=== PATIENT | female | born 1950 | race Caucasian/White ===

== ENCOUNTER 2024-11-15 12:53 | Day surgery (SDC) | payer MEDICARE, SELFPAY ==
[2024-11-15 13:39] VITALS: BMI 21.1
[2024-11-15 13:52] VITALS: BP 157/77; PULSE 72; RESP 17; TEMP 36.7; O2SAT 100
[2024-11-15] MEDS: LACTATED RINGERS 1000ML 1,000 ML 50 ML IV (14:07)
--- NOTE | 2024-11-15 15:44 | P.HP_ITS ---
History of Present Illness *Admission Date: 11/15/24 *Reason for visit:: Iron deficiency anemia *History of present illness: Mrs. Tabares is a 74-year-old female with moderate to marked iron deficiency anemia who is here for diagnostic EGD. The examination is deemed medically necessary for diagnostic EGD. The patient has been seen, interviewed and examined prior to the procedure by both myself and the anesthesia provider. [facility] Disclaimer: The information contained in this section may have been updated after the patient was seen, as this information can be updated by other users. Medical History (Updated 11/15/24 @ 15:44 by Kofi Lam II, MD) Hypothyroid History of anemia Anxiety Osteoporosis Left wrist fracture Surgical History (Updated 11/15/24 @ 14:00 by Madyson Barth RN) History of hysterectomy History of left hip hemiarthroplasty H/O rectal sphincterotomy Family History (Updated 11/15/24 @ 14:00 by Madyson Barth RN) Other Family history of myocardial infarction Family history of stroke Social History (Updated 11/15/24 @ 14:00 by Madyson Barth RN) Smoking Status: Never smoker alcohol intake: never current occupational status: employed and retired Travel in the last 8 weeks: None caffeine: Yes Have you lived/traveled outside [place] in past 30 days?: No Contact w/someone who lives/traveled outside US past 30 days?: No Exposure to someone with infectious disease in past 14 days?: No Do you have a fever (greater than 100.4 F or 38 C)?: No Have you tested positive for COVID-19: No Exposed to someone with COVID-19 in past 14 days?: No Do you have a sore throat?: No Do you have a cough?: No Do you have any weakness?: No Are you experiencing any nausea/vomitting?: No Do you have any diarrhea?: No Are you experiencing any unusual bleeding?: No Do you have any muscle aches/pain?: No Do you have any abdominal pain?: No Are you experiencing loss of taste or smell?: No Review of Systems Review of Systems Review of systems (narrative): Negative *Cardiovascular Comments: Negative *Gastrointestinal Comments: Negative *Genitourinary Comments: Negative *Musculoskeletal Comments: Negative *Neurologic Comments: Negative Meds Home Medications and Allergies Home Medications ?Medication ?Instructions ?Recorded ?Confirmed ?Type calcium carbonate 500 mg PO DAILY 11/15/24 11/15/24 History clonazepam 1 mg tablet (Klonopin) 1 mg PO DAILY PRN Anxiety 11/15/24 11/15/24 History ferrous sulfate 325 mg (65 mg 325 mg PO DAILY 11/15/24 11/15/24 History iron) tablet levothyroxine 75 mcg tablet 75 mcg PO DAILY 11/15/24 11/15/24 History pantoprazole 40 mg tablet,delayed 40 mg PO DAILY 11/15/24 11/15/24 History release sertraline 100 mg tablet (Zoloft) 100 mg PO DAILY 11/15/24 11/15/24 History vit A 7,160 unit-vit C 113 mg-vit 1 tab PO DAILY 11/15/24 11/15/24 History E 100 wozn-nmer-wnauet tablet vitamin E 30 unit capsule 1 unit PO DAILY 11/15/24 11/15/24 History New Prescriptions to Start Prescriptions: Allergies Allergy/AdvReac Type Severity Reaction Status Date / Time No Known Allergies Allergy Verified 11/15/24 13:41 Exam Data for Last 24 hours Vital signs and Labs for Last 24 Hours: Temp Pulse Resp BP Pulse Ox O2 Del Method 98.0 F 72 17 157/77 H 100 Room Air 11/15/24 13:52 11/15/24 13:52 11/15/24 13:52 11/15/24 13:52 11/15/24 13:52 11/15/24 13:52 I & O for Last 24 hours: Intake & Output 11/12/24 11/13/24 11/14/24 11/15/24 23:59 23:59 23:59 23:59 Weight 108 lb *Routine HEENT Exam Head: Present normocephalic Eye: Present EOMI and PERRL ENT: Present mucous membranes moist *Routine Neck Exam Neck: Present supple *Routine Respiratory Exam Respiratory: Present CTA bilaterally *Routine Cardiovascular Exam Cardiovascular: Present RRR *Routine Abdominal Exam Abdominal: Present soft and normoactive bowel sounds; Absent tenderness *Routine Rectal Exam Rectal:: deferred *Routine Genitalia Exam Genitalia:: deferred *Routine Extremities Exam Extremities: Absent cyanosis, clubbing or edema *Routine Skin Exam Skin: Present warm; Absent rash *Routine Neurological Exam Neurological: Present alert and oriented X3 Assessment and Plan *Assessment and plan (1) Iron deficiency anemia: Status: Acute Category: Medical Code(s): D50.9 - Iron deficiency anemia, unspecified Plan A/P: 1. Iron deficiency anemia is the preprocedural diagnosis. The patient will be anesthetized/sedated using MAC sedation. The patient has been seen and examined. Cardiac and lung assessment prior to the examination is stable. Proceed with planned diagnostic EGD.
--- NOTE | 2024-11-15 15:49 | HMH.PROCNOTE ---
[facility] Procedure Note Date: 11/15/24 Time: 15:49 Procedure Note:: Upper Endoscopy Procedure Report: Esophagogastroduodenoscopy with cold biopsies Endoscopost: Kofi Lam II, MD Referring Physician: Andrew Booker MD Date of Procedure: November 15, 2024 Equipment: Olympus GIF 190 standard upper endoscope Sedation: MAC sedation Indications: Mrs. Tabares is a 74-year-old female who is here for diagnostic upper endoscopy secondary to marked iron deficiency anemia. Her hemoglobin and hematocrit were recently low and she reports a hemoglobin as low as 6. Her iron saturation she reports at 2%. I do not have her labs or her old records presently. The patient did have a colonoscopy with [facility] 3 years ago that was essentially normal. She reports no abdominal pain, melena, hematochezia or bright red blood per rectum. She is not on any anticoagulation and reports no NSAIDs. She reports no dysphagia or weight loss. She is on oral iron but has not had parenteral iron infusion or Hemoccult testing. Procedure: Prior to the procedure, a history and physical exam was performed, and patient's medications and allergies were reviewed. The risks, benefits and alternatives of the sedation and procedure were discussed with the patient. All questions were answered and informed consent was obtained. The patient was brought to the procedure room. Patient identification and proposed procedure were verified by the physician and the nurse. The patient was placed in a left lateral decubitus position and the scope was passed under direct vision. Throughout the procedure, the patient's blood pressure, pulse, and oxygen saturations were monitored continuously. The upper GI endoscopy was accomplished without difficulty. The patient tolerated the procedure well. Findings: The scope was passed directly into the upper esophagus and advanced to the third portion of the duodenum. The post bulbar duodenum and duodenal bulb were normal with normal mucosa and conniventes. There were no angiodysplasias or ulcerations within the duodenum. The scope was withdrawn through a wide anastomosis into the stomach and there is evidence of prior antrectomy. There was moderate bile reflux with moderate linear reactive gastropathy of the body and fundus of the stomach. There were no erosions, ulcerations or angiodysplasias of the stomach. Upon retroflexion there was no hiatal hernia. Biopsies were taken from the body of the stomach. The scope was then withdrawn into the esophagus. There was no evidence of reflux esophagitis or Villanueva's. The remainder of the esophageal mucosa was normal. Impression: 1. Prior antrectomy/distal gastrectomy with normal widely patent anastomosis 2. Bile reflux with moderate linear reactive gastropathy Plan: There was no etiology for her iron deficiency. I am going to have her do Hemoccult testing. I will inquire about use of [id number] NSAIDs or aspirin. If the patient is Hemoccult positive, I would recommend PillCam testing. I would also consider repeat colonoscopy even though it has been just 3 years. If she is Hemoccult negative, she is not absorbing iron well. I would recommend parenteral iron infusion at this time as well. I will discuss the findings with the patient and family. I would like to obtain her recent labs and old records.
[2024-11-15 15:58] VITALS: BP 140/69; PULSE 71; RESP 20; TEMP 36.3; O2SAT 98
--- NOTE | 2024-11-15 15:59 | P.PNANES_ITS ---
[facility] Disclaimer: The information contained in this section may have been updated after the patient was seen, as this information can be updated by other users. Medical History Hypothyroid History of anemia Anxiety Osteoporosis Left wrist fracture Surgical History History of hysterectomy History of left hip hemiarthroplasty H/O rectal sphincterotomy Family History Other Family history of myocardial infarction Family history of stroke Social History Smoking Status: Never smoker alcohol intake: never substance use type: unknown current occupational status: employed and retired Travel in the last 8 weeks: None caffeine: Yes [facility] Anesthesia Checklist Patient Identification Patient Identification: Arm Band and Verbal (Name & ) Structural Data Admitted From: Home Planned Operative Procedure/s: EGD Verified Documents: Surgical Consent and History and Physical NPO Status Verified Time NPO: 00:00 Additional verifications Anesthesia Reactions: No Previous Colonoscopy: Yes Airway Assessment Mallampati Score:: Class II Neurological Assessment Level of Consciousness: Awake, Alert and Appropriate Anesthesia Plan Anesthesia Risk discussed: Yes Anesthesia Plan: Verified ASA Class: II Anesthesia Type: MAC
[2024-11-15 16:08] VITALS: BP 151/77; PULSE 67; RESP 20; O2SAT 99
[2024-11-15 16:18] VITALS: BP 161/84; PULSE 71; RESP 17; O2SAT 99
[2024-11-15 16:31] LABS: Basophils % 0.4 % (0.1-2.0); Eosinophils # 0.6 Kmm3 (0.0-0.4); Eosinophils % 6.6 % (0.1-12.0); Hematocrit 38.9 % (37.0-47.0); Hemoglobin 11.9 g/dL (12.2-16.2); Lymphocytes # 1.7 K/mm3 (0.7-4.5); Lymphocytes % 20.8 % (10-50); Mean Corpuscular HGB Conc 30.6 g/dL (31.8-35.4); Mean Corpuscular Hemoglobin 24.4 pg (27.0-31.2); Mean Corpuscular Volume 79.9 fl (81-99); Mean Platelet Volume 8.9 fl (7.4-10.4); Monocytes # 0.5 K/mm3 (0.1-1.0); Monocytes % 5.8 % (1.7-9.3); Neutrophils # 5.5 K/mm3 (1.8-7.8); Neutrophils % 66.2 % (37.0-80.0); Nucleated Red Blood Cells # 0 10^3/uL; Nucleated Red Blood Cells % 0 %; Platelet Count 390 K/mm3 (142-424); Red Blood Count 4.87 M/mm3 (4.20-5.40); Red Cell Distribution Width 16.8 % (11.5-17.5); Red Cell Distribution Width-SD 49.7 fL; White Blood Count 8.3 K/mm3 (4.8-10.8)
[2024-11-15 17:20] LABS: Iron 35 ug/dL (37-170)
[2024-11-15 17:29] LABS: Total Iron Binding Capacity 370 ug/dL (265-497)
[2024-11-15 17:57] LABS: Ferritin 13.9 ng/ml (11.1-264)
== END 2024-11-15 16:26 | disposition home or self-care (01) ==
PROVIDERS: PCP Internal Medicine; Visit Provider Internal Medicine Gastroenterology
PROC: 0DJ08ZZ Inspection of Upper Intestinal Tract, Via Natural or Artificial Opening Endoscopic (ICD-10-PCS; CPT 43239; principal; 2024-11-15 14:30)
DX: D50.9 Iron deficiency anemia, unspecified (principal); K31.9 Disease of stomach and duodenum, unspecified
CPT/HCPCS: 43239; 36415; 82728; 83540; 83550; 85025; J7120

== ENCOUNTER 2024-11-27 11:55 | Outpatient (CLI) | payer MEDICARE, SELFPAY ==
[2024-11-27] MEDS: SODIUM CHLORIDE 0.9% 50ML BAG 50 ML IV (12:02)
[2024-11-27] MEDS: SODIUM CHLORIDE 0.9% 10ML FLUSH SYRINGE 10 ML IV (12:02)
[2024-11-27] MEDS: IRON SUCROSE COMPLEX 200 MG in 0.9 % SODIUM CHLORIDE 100 ML 220 MG IV (12:14)
[2024-11-27 12:33] VITALS: BP 134/72; PULSE 74; RESP 20; TEMP 36.4; O2SAT 98
[2024-11-27 13:00] VITALS: BP 126/64; PULSE 70; RESP 20; O2SAT 98
== END 2024-11-27 13:04 | disposition home or self-care (01) ==
LOC: INF 11:57
PROVIDERS: PCP Internal Medicine; Visit Provider Internal Medicine Medical Oncology
DX: D50.9 Iron deficiency anemia, unspecified (principal)
CPT/HCPCS: 96365; J1756

== ENCOUNTER 2024-12-03 12:02 | Outpatient (CLI) | payer MEDICARE, SELFPAY ==
[2024-12-03 12:45] VITALS: BP 123/62; PULSE 74; RESP 18; O2SAT 97
[2024-12-03] MEDS: SODIUM CHLORIDE 0.9% 50ML BAG 50 ML IV (12:45)
[2024-12-03] MEDS: IRON SUCROSE COMPLEX 200 MG in 0.9 % SODIUM CHLORIDE 100 ML 220 MG IV (12:45)
[2024-12-03 13:15] VITALS: BP 121/81; PULSE 71; RESP 18; O2SAT 97
== END 2024-12-03 13:15 | disposition home or self-care (01) ==
LOC: INF 12:03
PROVIDERS: PCP Internal Medicine; Visit Provider Internal Medicine Medical Oncology
DX: D50.9 Iron deficiency anemia, unspecified (principal)
CPT/HCPCS: 96365; J1756

== ENCOUNTER 2024-12-10 13:12 | Outpatient (CLI) | payer MEDICARE, SELFPAY ==
[2024-12-10] MEDS: SODIUM CHLORIDE 0.9% 50ML BAG 50 ML IV (13:29)
[2024-12-10] MEDS: IRON SUCROSE COMPLEX 200 MG in 0.9 % SODIUM CHLORIDE 100 ML 220 MG IV (13:29)
[2024-12-10 13:35] VITALS: BP 131/64; PULSE 74; RESP 18; TEMP 36.7; O2SAT 100
[2024-12-10 14:05] VITALS: BP 128/69; PULSE 71
== END 2024-12-10 14:10 | disposition home or self-care (01) ==
LOC: INF 13:13
PROVIDERS: PCP Internal Medicine; Visit Provider Internal Medicine Medical Oncology
DX: D50.9 Iron deficiency anemia, unspecified (principal)
CPT/HCPCS: 96365; J1756

== ENCOUNTER 2025-01-24 12:42 | Outpatient (CLI) | payer MEDICARE, SELFPAY ==
--- OUTSIDE RECORDS SUMMARY | 2025-01-24 12:44 | XMS_ITS | Clinical Summary ---
Author Organization [facility] Address [address] [place] [address] Care Team Providers Care Inspector Salvage Name Role Phone Luis Alfredo Booker MD Primary Care Provider [phone] Allergies No known active allergies Medications clonazePAM (KlonoPIN) 1 MG tablet Take 1 tablet (1 mg) by mouth 3 (three) times a day. 3 Active ergocalciferol (Vitamin D-2) 1.25 MG (72943 UT) capsule TK 1 C PO 1 TIME WEEKLY 0 Active sertraline (Zoloft) 100 MG tablet Take 2 tablets (200 mg) by mouth 1 (one) time each day. 3 Active Calcium Carb-Cholecalcifero l (CALCIUM 1000 + D PO) Take by mouth. Active Multiple Vitamins-Minerals (EYE VITAMINS PO) Take by mouth. Active alpha tocopherol (Vitamin E) 100 units capsule Take 1 capsule (100 Units) by mouth 1 (one) time each day. Active levothyroxine (Synthroid, Levoxyl) 175 MCG tablet Take 1 tablet (175 mcg) by mouth 1 (one) time each day before breakfast. Active thiamine (vitamin B-1) 250 MG tablet Take 1 tablet (250 mg) by mouth 1 (one) time each day. Active busPIRone (Buspar) 5 MG tabletIndications:M inor neurocognitive disorder,Generalize d anxiety disorder Take 1 tablet (5 mg) by mouth 2 (two) times a day if needed (anxiety). 60 tablet 3 3 Active Family History Medical History Relation Name Comments Arthritis Daughter Juanis Rikki Autoimmune disease Daughter Juanis Rikki Diabetes Daughter Juanis Rikki Arthritis Father Shantanu Rodriguez Cardiac disorder Father Shantanu Rodriguez Heart disease Father Shantanu Rodriguez Stroke Father Shantanu Rodriguez Arthritis Mother Jill Rodriguez Conversions - Other Mother Jill Rodriguez FH: Pa rkinson's disease Macular degeneration Mother Jill Rodriguez Cardiac disorder Other 1 Stroke Other 2 Dementia Other 3 Dementia Other 4 Macular degeneration Other 5 Conversions - Other Other 6 FH: Park inson's disease Arthritis Sister Chris Osorio Drug abuse Son Joseph Tabares Relation Name Status Comments Daughter Juanis Rikki Father Shantanu Rodriguez Mother Jill Rodriguez Other 1 Other 2 Other 3 Other 4 Other 5 Other 6 Sister Chris Osorio Son Joseph Tabares Social History Tobacco Use Types Packs/Day Years Used Date Smoking Tobacco: Never Smokeless Tobacco: Never Tobacco Cessation:Counseling Given: Not Answered Alcohol Use Standard Drinks/Week Comments Never 0 (1 standard drink = 0.6 oz pur e alcohol) PHQ-2 Answer Date Recorded Patient Health Questionnaire-2 Score 0 01/04/2023 PHQ-2A Answer Date Recorded Patient Health Questionnaire-2 Score 0 01/04/2023 Comments Unknown Sex and Gender Information Value Date Recorded Sex Assigned at Not on file Legal Sex Female 6:30 PM EDT Gender Identity Not on file Sexual Orientation Not on file Last Filed Vital Signs Vital Sign Reading Time Taken Comments Blood Pressure 139/83 03/25/2023 3:41 PM EDT Pulse 84 03/25/2023 3:41 PM EDT Temperature 36.8 C (98.2 F) 09/06/2022 12:19 PM EST Respiratory Rate - - Oxygen Saturation 94% 03/25/2023 3:41 PM EDT Inhaled Oxygen Concentration - - Weight 46.6 kg (102 lb 12.8 oz) 03/25/2023 3:41 PM EDT Height 152.4 cm (5') 03/25/2023 3:41 PM EDT Body Mass Index 20.08 03/25/2023 3:41 PM EDT Plan of Treatment Health Maintenance Due Date Last Done Comments [facility]-Bone Density Scan 1950 [facility]-Hepatitis C Screening 1950 [facility]-Medicare Annual Wellness (AWV) 1950 [facility]-Infant/Child/Adol SDOH Screenings 1950 [id number] Vaccine (#1) 02/22/1957 [facility]- SDOH Screenings 02/22/1970 [facility]-Adult SDOH Screenings 02/22/1970 [facility]-DTaP,Tdap,and Td Vaccine s (1 - Tdap) 02/22/1971 CT Colonography 02/22/1997 Colonoscopy 02/22/1997 FIT-DNA 02/22/1997 FIT 02/22/1997 FOBT 02/22/1997 Sigmoidoscopy 02/22/1997 [facility]-Colorectal Cancer Screening 02/22/1997 [facility]-Breast Cancer Screening 02/22/2002 [facility]-Pneumococcal Vaccine: 50 + Years (1 of 1 - PCV) 02/22/2002 [facility]-Zoster Vaccines (1 of 2) 02/22/2002 [facility]-RSV Vaccine: 60+ Years o r (1 - Risk 60-74 years 1-dose series) 2012 [facility]-Depression Screening 01/05/2024 01/04/2023 [facility]-Influenza Vaccine (#1) 03/25/202505/24, 03/22/2019, 05/16/2016 HPV Vaccines Aged Out No longer eligi ble based on patient's age to complete this topic [facility]-HIB Vaccines Aged Out No longer e ligible based on patient's age to complete this topic [facility]-Hepatitis A Vaccines Aged Out No longer eligible based on patient's age to complete this topic [facility]-IPV Vaccines Aged Out No longer e ligible based on patient's age to complete this topic [facility]-Rotavirus Vaccines Aged Out No lo nger eligible based on patient's age to complete this topic Insurance MEDICARE AETNA Care Teams Inspector Salvage Relationship Specialty Start Date End Date Luis Alfredo Booker MD [address] [place] [address] PCP - General 01/21/23
[2025-01-24 13:16] LABS: Hematocrit 40.4 % (37.0-47.0); Hemoglobin 13.1 g/dL (12.2-16.2); Immature Granulocytes % 0.9 %; Mean Corpuscular HGB Conc 32.4 g/dL (31.8-35.4); Mean Corpuscular Hemoglobin 27.3 pg (27.0-31.2); Mean Corpuscular Volume 84.2 fl (81-99); Nucleated Red Blood Cells % 0 %; Platelet Count 340 K/mm3 (142-424); Red Blood Count 4.80 M/mm3 (4.20-5.40); Red Cell Distribution Width-SD 55.8 fL; White Blood Count 12.7 K/mm3 (4.8-10.8)
[2025-01-24 13:57] LABS: Iron 82 ug/dL (37-170)
[2025-01-24 14:08] LABS: Total Iron Binding Capacity 275 ug/dL (265-497)
[2025-01-24 14:34] LABS: Ferritin 155 ng/ml (11.1-264)
== END 2025-01-24 23:59 | disposition home or self-care (01) ==
LOC: LAB 12:43
PROVIDERS: PCP Internal Medicine; Visit Provider Internal Medicine Medical Oncology
DX: D50.9 Iron deficiency anemia, unspecified (principal)
CPT/HCPCS: 36415; 82728; 83540; 83550; 85025